=== PATIENT | female | born 1960 | race Caucasian/White ===

== ENCOUNTER 2018-03-28 09:44 | Emergency (ER) | payer OTHER ==
[~2018-03-28] VITALS: Ht 177.8 cm; Wt 94.8 kg
[~2018-03-28 09:44] MED LIST: ANTIVERT25 MG PO; HYDROCODONE-AP1 EAC6 PO; NAPROSYN500 MG PO; PROTONIX40 M1 PO; ROBAXIN 750 MG750 M1 PO; ZOFRAN ODT4 MG PO
[2018-03-28 10:44] LABS: APTT 22.5 Seconds (25.0-31.3); PROTIME 9.6 Seconds (9.20-11.50)
[2018-03-28 10:49] LABS: ANION GAP 5 mmol/L (7-16); BUN 16 mg/dL (7-18); CALCIUM 9.8 mg/dL (8.5-10.1); CHLORIDE 104 mmol/L (98-107); CO2 31 mmol/L (21-32); CREATININE 0.8 mg/dL (0.6-1.3); GLUCOSE 110 mg/dL (70-99); SODIUM 140 mmol/L (136-145)
[2018-03-28 10:50] LABS: POTASSIUM 5.3 mmol/L (3.5-5.1)
[2018-03-28 10:53] LABS: ALBUMIN 3.6 g/dL (3.4-5.0); ALKALINE PHOSPHATASE 122 U/L (46-116); NT-PRO BRAIN NAT PEPTIDE 34 pg/mL (<300); SGOT 30 U/L (15-37); SGPT 22 U/L (30-65); TOTAL BILIRUBIN 0.3 mg/dL (<0.1-1.0); TOTAL PROTEIN 7.7 g/dL (6.4-8.2); TROPONIN-I LEVEL <0.06 ng/mL (<0.06)
[2018-03-28 11:25] LABS: URINE BILIRUBIN NEGATIVE (Negative); URINE BLOOD NEGATIVE (Negative); URINE CLARITY CLEAR; URINE COLOR YELLOW; URINE GLUCOSE-RANDOM NEGATIVE (Negative); URINE KETONES NEGATIVE (Negative); URINE LEUKOCYTES-REFLEX TRACE (Negative); URINE NITRITE-REFLEX NEGATIVE (Negative); URINE PROTEIN NEGATIVE (Negative); URINE SPECIFIC GRAVITY <= 1.005 (1.005-1.030); URINE UROBILINOGEN 0.2 E.U./dl (0.2-1.0)
[2018-03-28 11:33] VITALS: BP 157/95
[2018-03-28 11:38] LABS: SQUAMOUS 4-10 Moderate /LPF (0-3)
[2018-03-28 11:39] LABS: URINE RBC 0-2 Rare /HPF (0-2)
[2018-03-28 11:40] LABS: BACTERIA-REFLEX None Seen /HPF (None Seen); CASTS None Seen /LPF (None Seen); CRYSTALS None Seen /LPF (None Seen); MUCUS >6 Heavy strn/LPF (None Seen); URINE WBC-REFLEX 0-5 Rare /HPF (0-5)
--- NOTE | 2018-03-28 15:17 | EKG ---
[place] [address] ELECTROCARDIOGRAM REPORT Name: FER HURST Room: [facility]#: [id number] Admission: 03/28/18 Attend Phys: Discharge: 03/28/18 Date of : 60 Report #: [id number] THIS REPORT FOR: //name// [facility] ED Test Date: 2018-03-28 Test Time: 10:34:37 Pat Name: FER HURST Department: Room: Gender: F [employer] Furn[employer]: BRANDEE : 1960 Requested By: Chandrakant Lucio Order Number: [id number] MD: Imtiaz Dixon Measurements Intervals [place] Rate: 65 P: 34 IA: 143 QRS: -1 QRSD: 88 T: 4 QT: 397 QTc: 413 Interpretive Statements Sinus rhythm Low voltage, precordial leads Compared to ECG 02/10/2016 09:05:39 Low QRS voltage now present Electronically Signed On 03-28-2018 15:16:57 CDT by Imtiaz Dixon [email or web address] <ELECTRONICALLY SIGNED> By: Imtiaz Dixon MD, [facility] 03/28/18 1516 1034 1034 Imtiaz Dixon MD, [facility] /EPI
== END 2018-03-28 11:41 | disposition home or self-care (01) ==
LOC: M.ERS 09:44
PROVIDERS: Family Medicine
DX: R42 Dizziness and giddiness (principal); Z85.3 Personal history of malignant neoplasm of breast; Z88.2 Allergy status to sulfonamides